=== PATIENT | male | born 1965 | race African-American/Black ===

== ENCOUNTER → 2016-10-11 | Outpatient (CLI) | payer MEDICARE, MEDICAID, OTHER ==
[~2016-10-11] MED LIST: ASPI-1073 PO; FOLI-43 PO; FOLI1TAB87 PO; HYDR-3511 PO; HYDR-3513 PO; HYDR-3927 PO; SEVE800T PO
== END | disposition home or self-care (01) ==
LOC: CT 07:12
DX: K57.90 Diverticulosis of intestine, part unspecified, without perforation or abscess without bleeding (principal); Z94.0 Kidney transplant status
CPT/HCPCS: 71250; 74176